=== PATIENT | male | born 1955 | race Caucasian/White ===

== ENCOUNTER 2021-05-09 15:40 | Emergency (ER) | payer MEDICARE, OTHER ==
[2021-05-09] MEDS ORDERED: HYDROmorphone 0.5 MG/0.5 ML SYRINGE IVP STA (18:03)
[2021-05-09] MEDS ORDERED: KETOROLAC 30 MG/ML 1 ML VIAL IVP STA (18:03)
--- NOTE | 2021-05-09 18:08 | ED ---
General Adult HPI - General Chief complaint: Back Pain/Injury Stated complaint: low back pain, elevated BP Time Seen by Provider: 05/09/21 17:45 Source: patient, RN notes reviewed, old records reviewed Mode of arrival: ambulatory - History of Present Illness Initial comments: This is a 66-year-old male who presents emergency Department complaining of bilateral lower back pain just above the iliac crest. Patient states his been ongoing about a month and over the last week is become excruciating. Patient states he went to a urgent care couple of days ago they gave him prednisone and Toradol and has not helped at all. Patient states she's chronically on tramadol and gabapentin he also takes Steger on occasion. Patient states this pain is worse than his typical back pain. Patient denies any fevers or chills per patient denies any abdominal pain. Patient denies any dysuria hematuria urinary frequency. Patient denies any radiation of pain down his legs. Patient states lying flat makes it better sitting up makes it considerably worse. Patient denies any chest pain or difficulty breathing. - Related Data Home Medications Medication Instructions Recorded Confirmed Acetaminophen [Tylenol] 1,000 mg PO Q6H PRN 05/09/21 05/09/21 Anastrozole 1 mg PO Q3D 05/09/21 05/09/21 Aspirin 81 mg PO DAILY 05/09/21 05/09/21 Atorvastatin [Lipitor] 40 mg PO HS 05/09/21 05/09/21 Biotin 10,000 mcg PO DAILY 05/09/21 05/09/21 Cholecalciferol [Vitamin D3 (25 50 mcg PO DAILY 05/09/21 05/09/21 Mcg = 1000 Iu)] Cyanocobalamin (Vitamin B-12) 1,000 mcg PO DAILY 05/09/21 05/09/21 [Vitamin B-12] Cyanocobalamin [Vitamin B-12 1,000 mcg SQ QMONTHLY 05/09/21 05/09/21 Injection] Dorzolamide HCl/Pf [Dorzolamide 2% 1 drop BOTH EYES BID 05/09/21 05/09/21 Eye Drop] Gabapentin 300 mg PO TID 05/09/21 05/09/21 Losartan [Cozaar] 25 mg PO BID PRN 05/09/21 05/09/21 Metoprolol Tartrate [Lopressor] 25 mg PO BID 05/09/21 05/09/21 Testosterone Cypionate 200 mg IM Q10D 05/09/21 05/09/21 [Depo-Testosterone] Thiamine HCl [Vitamin B-1] 250 mg PO DAILY 05/09/21 05/09/21 Timolol [Betimol 0.5% Ophth Soln] 1 drop BOTH EYES BID 05/09/21 05/09/21 Previous Rx's Medication Instructions Recorded Cyclobenzaprine [Flexeril] 10 mg PO TID #5 tab 05/09/21 Allergies Allergy/AdvReac Type Severity Reaction Status Date / Time No Known Allergies Allergy Verified 05/09/21 20:07 Review of Systems ROS Statement: Those systems with pertinent positive or pertinent negative responses have been documented in the HPI. ROS Other: All systems not noted in ROS Statement are negative. Past Medical History Past Medical History: Hypertension, Rheumatoid Arthritis (RA) History of Any Multi-Drug Resistant Organisms: None Reported Additional Past Surgical History / Comment(s): RCA stent Past Psychological History: No Psychological Hx Reported Smoking Status: Former smoker Past Alcohol Use History: Occasional Past Drug Use History: None Reported, Marijuana General Exam - General Exam Comments Initial Comments: GENERAL: Patient is well-developed and well-nourished. Patient is nontoxic and well- hydrated and is in mild distress. ENT: Neck is soft and supple. No significant lymphadenopathy is noted. Oropharynx is clear. Moist mucous membranes. Neck has full range of motion without eliciting any pain. EYES: The sclera were anicteric and conjunctiva were pink and moist. Extraocular movements were intact and pupils were equal round and reactive to light. Eyelids were unremarkable. PULMONARY: Unlabored respirations. Good breath sounds bilaterally. No audible rales rhonchi or wheezing was noted. CARDIOVASCULAR: There is a regular rate and rhythm without any murmurs gallops or rubs. ABDOMEN: Soft and nontender with normal bowel sounds. SKIN: Skin is clear with no lesions or rashes and otherwise unremarkable. NEUROLOGIC: Patient is alert and oriented x3. Cranial nerves II through XII are grossly intact. Motor and sensory are also intact. Normal speech, volume and content. Symmetrical smile. Straight leg test is normal bilaterally MUSCULOSKELETAL: Normal extremities with adequate strength and full range of motion. LYMPHATICS: No significant lymphadenopathy is noted PSYCHIATRIC: Normal psychiatric evaluation. Course Vital Signs 05/09/21 05/09/2121 16:32 18:32 19:19 Temperature 98.7 F Pulse Rate 77 60 82 Respiratory 18 18 16 Rate Blood Pressure 219/102 157/95 166/101 O2 Sat by Pulse 96 93 L 98 Oximetry Medical Decision Making - Medical Decision Making EKG shows normal sinus rhythm at 63 bpm SC interval 238 QRS is 84 Q-T intervals 46 QTC is 4:15. Patient's EKG shows no ST segment elevation or depression. Patient's CT of the abdomen pelvis show no acute abnormality. Aerobic and he said the Toradol helped a little anytime he just sat up and felt like he was having muscle spasm. I gave the patient 5 of Valium and he states tomorrow symmetrical on a plane to follow-up with his normal physician in [place]. - Lab Data Result diagrams: 05/09/21 18:19 05/09/21 18:19 Lab Results 05/09/21 05/09/21 05/09/21 Range/Units 18:19 18:19 18:19 WBC 9.8 (3.8-10.6) k/uL RBC 4.62 (4.30-5.90) m/uL Hgb 15.1 (13.0-17.5) gm/dL Hct 45.5 (39.0-53.0) % MCV 98.4 (80.0-100.0) fL MCH 32.7 (25.0-35.0) pg MCHC 33.2 (31.0-37.0) g/dL RDW 13.1 (11.5-15.5) % Plt Count 202 (150-450) k/uL MPV 7.7 Neutrophils % 83 % Lymphocytes % 6 % Monocytes % 10 % Eosinophils % 1 % Basophils % 0 % Neutrophils # 8.1 H (1.3-7.7) k/uL Lymphocytes # 0.5 L (1.0-4.8) k/uL Monocytes # 0.9 (0-1.0) k/uL Eosinophils # 0.1 (0-0.7) k/uL Basophils # 0.0 (0-0.2) k/uL Sodium 136 L (137-145) mmol/L Potassium 3.8 (3.5-5.1) mmol/L Chloride 102 (98-107) mmol/L Carbon Dioxide 27 (22-30) mmol/L Anion Gap 7 mmol/L BUN 29 H (9-20) mg/dL Creatinine 1.12 (0.66-1.25) mg/dL Est GFR (CKD-EPI)AfAm 80 (>60 ml/min/1.73 sqM) Est GFR (CKD-EPI)NonAf 69 (>60 ml/min/1.73 sqM) Glucose 127 H (74-99) mg/dL Calcium 8.8 (8.4-10.2) mg/dL Total Bilirubin 0.7 (0.2-1.3) mg/dL AST 25 (17-59) U/L ALT 26 (4-49) U/L Alkaline Phosphatase 37 L (38-126) U/L Total Protein 6.5 (6.3-8.2) g/dL Albumin 3.6 (3.5-5.0) g/dL Urine Color Yellow Urine Appearance Clear (Clear) Urine pH 6.0 (5.0-8.0) Ur Specific [place] 1.019 (1.001-1.035) Urine Protein Negative (Negative) Urine Glucose (UA) Negative (Negative) Urine Ketones Negative (Negative) Urine Blood Negative (Negative) Urine Nitrite Negative (Negative) Urine Bilirubin Negative (Negative) Urine Urobilinogen <2.0 (<2.0) mg/dL Ur Leukocyte Esterase Negative (Negative) Disposition Clinical Impression: Mechanical back pain Disposition: HOME SELF-CARE Condition: Good Instructions (If sedation given, give patient instructions): Acute Low Back Pain (ED) Prescriptions: Cyclobenzaprine [Flexeril] 10 mg PO TID #5 tab Is patient prescribed a controlled substance at d/c from ED?: No Referrals: Nonstaff,Physician [Primary Care Provider] - 1-2 days Time of Disposition: 20:18
[2021-05-09 18:51] LABS: Basophils % (A) 0 %; Eosinophils # (A) 0.1 k/uL (0-0.7); Eosinophils % (A) 1 %; HCT 45.5 % (39.0-53.0); HGB 15.1 gm/dL (13.0-17.5); Lymphocytes # (A) 0.5 k/uL (1.0-4.8); Lymphocytes % (A) 6 %; MCH 32.7 pg (25.0-35.0); MCHC 33.2 g/dL (31.0-37.0); MCV 98.4 fL (80.0-100.0); Mean Platelet Volume 7.7; Monocytes # (A) 0.9 k/uL (0-1.0); Monocytes % (A) 10 %; Neutrophils # (A) 8.1 k/uL (1.3-7.7); Neutrophils % (A) 83 %; Platelet Count 202 k/uL (150-450); RBC 4.62 m/uL (4.30-5.90); RDW 13.1 % (11.5-15.5); WBC 9.8 k/uL (3.8-10.6)
[2021-05-09 19:00] LABS: Albumin 3.6 g/dL (3.5-5.0); Calcium 8.8 mg/dL (8.4-10.2); Potassium 3.8 mmol/L (3.5-5.1); Total Bilirubin 0.7 mg/dL (0.2-1.3); Total Protein 6.5 g/dL (6.3-8.2)
--- NOTE | 2021-05-09 19:12 | CT ---
EXAMINATION TYPE: CT abdomen pelvis wo con CT DLP: 621.1 mGycm, Automated exposure control for dose reduction was used. DATE OF EXAM: 05/09/2021 6:51 PM COMPARISON: None CLINICAL INDICATION:Male, 66 years old with history of Flank pain, Low back pain. TECHNIQUE: Standard CT of the abdomen and pelvis without IV or oral contrast. Lack of IV or oral co ntrast limits evaluation of solid and hollow organ viscera. Coronal and sagittal reformats were perfo rmed. FINDINGS: LOWER CHEST: Unremarkable ABDOMEN LIVER: Unremarkable GALLBLADDER AND BILE DUCTS: Unremarkable. PANCREAS: Unremarkable. SPLEEN: Unremarkable. ADRENAL GLANDS: Unremarkable. KIDNEYS AND URETERS: No evidence of hydronephrosis. The ureters are unremarkable. Left renal cysts me asuring 3.3 cm and the 3.6 cm. Nonobstructing 1-2 mm right renal calculi. PELVIS BLADDER: Unremarkable REPRODUCTIVE: Prostate is prominent in size measuring 4.9 cm in transverse dimension. ABDOMEN & PELVIS STOMACH AND BOWEL: No evidence of bowel obstruction. PERITONEUM: No evidence of pneumoperitoneum or free fluid. VASCULATURE: Mild atherosclerotic calcifications are present throughout the abdominal aorta and its b ranches. MUSCULOSKELETAL: Moderate disc degeneration changes are present throughout the thoracolumbar spine. S ubcutaneous gas is seen at the level of L1-L2 secondary to disc space narrowing and probable herniati on of disc contents. LYMPH NODES: No gross evidence for lymphadenopathy. SOFT TISSUE/ABDOMINAL WALL: Unremarkable IMPRESSION: 1. No evidence for acute intra-abdominal process. 2. Borderline prostatomegaly 3. A L1-L2 disc herniation suspected given pneumorachis space narrowing. 4. Left renal cysts 5. Nonobstructing right renal calculus.
[2021-05-09 19:19] VITALS: RESP 16
[2021-05-09 20:06] LABS: Appearance,Urine Clear (Clear); Bilirubin,Urine Negative (Negative); Blood,Urine Negative (Negative); Color,Urine Yellow; Glucose,Urine (UA) Negative (Negative); Ketones,Urine Negative (Negative); Leukocyte Esterase,Urine Negative (Negative); Nitrite,Urine Negative (Negative); Protein,Urine Negative (Negative); Specific Gravity,Urine 1.019 (1.001-1.035); Urobilinogen,Urine <2.0 mg/dL (<2.0)
[2021-05-09] MEDS ORDERED: DIAZEPAM 5 MG/ML 2 ML INJ IVP STA (20:19)
[2021-05-09 20:50] VITALS: BP 166/93; PULSE 57; TEMP 98.2
== END 2021-05-09 20:49 | disposition home or self-care (01) ==
LOC: EC 15:40
DX: M54.50 Low back pain, unspecified (principal); I10 Essential (primary) hypertension; M06.9 Rheumatoid arthritis, unspecified; F12.90 Cannabis use, unspecified, uncomplicated; Z87.891 Personal history of nicotine dependence; Z72.89 Other problems related to lifestyle; Z79.899 Other long term (current) drug therapy
CPT/HCPCS: 36415; 93005; 80053; 85025; 81003; 74176; 99284; 96374; 96375 ×2; J3360; J1885; J1170